=== PATIENT | female | born 1935 | race Caucasian/White ===

== ENCOUNTER 2019-06-06 09:47 | Observation (INO) ==
[2019-06-06] MEDS ORDERED: *HR* HYDROcodone/Acet 5/325 mg TABLET PO ONE (10:18)
[2019-06-06 10:46] LABS: Basophils # 0.1 K/mcL (0.0-0.2); Basophils % 0.6 %; Eosinophils % 0.5 %; Hematocrit 34.7 % (35.3-44.9); Hemoglobin 10.1 g/dL (11.5-15.4); Immature Granulocytes % 0.5 % (0-4); Lymphocytes # 0.7 K/mcL (0.6-4.6); Lymphocytes % 8.8 %; Mean Corpuscular HGB Conc 29.1 g/dL (31.6-35.5); Mean Corpuscular Hemoglobin 27.8 pg (28.0-33.3); Mean Corpuscular Volume 95.6 fL (83.0-100.0); Mean Platelet Volume 11.6 fL (9.4-12.4); Monocytes # 0.6 K/mcL (0.0-1.3); Monocytes % 7.3 %; Neutrophils # 6.9 K/mcL (1.6-8.9); Platelet Count 155 K/mcL (140-400); Red Blood Count 3.63 M/mcL (3.82-4.97); Red Cell Distribution Width 15.8 % (11.5-14.5); Segmented Neutrophils % 82.3 %; White Blood Count 8.3 K/mcL (4.3-11.1)
[2019-06-06 11:05] LABS: BUN/Creatinine Ratio 74 (6-26); Blood Urea Nitrogen 39 mg/dL (8-23); Calcium 9.2 mg/dL (8.6-10.3); Carbon Dioxide 25 mEq/L (23-29); Chloride 111 mEq/L (98-107); Glucose 116 mg/dL (70-105); Osmolality,Calculated 304 (280-300); Potassium 4.6 mEq/L (3.5-5.1); Sodium 142 mEq/L (136-145); eGFR For African Americans > 60 (> 60); eGFR For Non-African Americans > 60 (> 60)
[2019-06-06] MEDS ORDERED: *HR* FentaNYL (PF) 100 MCG/2 ML VIAL IVP ONE (11:42)
[2019-06-06 12:08] LABS: Bilirubin,Urine Negative (Negative); Blood,Urine Negative (Negative); Clarity,Urine Clear (Clear); Color,Urine Yellow (Yellow); Glucose,Urine (UA) Normal (Normal); Ketones,Urine Negative (Negative); Leukocyte Esterase,Urine Negative (Negative); Nitrite,Urine Negative (Negative); PH,Urine 5.5 pH Units (5.0-8.0); Protein,Urine Negative (Neg-Trace); Specific Gravity,Urine 1.027 (1.010-1.025); Urobilinogen,Urine Normal (Normal)
[2019-06-06] MEDS ORDERED: Naloxone 0.4 MG/ML INJ IVP PRN (13:44)
[2019-06-06] MEDS ORDERED: *HR* HYDROmorphone (PF) 1 MG/ML SYRINGE IVP PRN (13:53)
[2019-06-06] MEDS ORDERED: Ondansetron 4 MG/2 ML VIAL IVP PRN (14:18)
[2019-06-06] MEDS ORDERED: MVI IVC SCH (17:00)
[2019-06-06] MEDS ORDERED: [UNRECOGNIZED DRUG - OTHER] IVC SCH (17:00)
[2019-06-06] MEDS ORDERED: PARENTERAL AMINO ACID 10% IVC SCH (17:00)
[2019-06-06] MEDS ORDERED: AMINO ACIDS IVC SCH (17:00)
[2019-06-06] MEDS ORDERED: DEXTROSE 15% IVC SCH (17:00)
[2019-06-06] MEDS ORDERED: Clinimix E 5%-15% SOLUTION 2,000 ML with MVI, adult with vitamin K 10 ML IVC SCH (17:00)
[2019-06-06] MEDS: *HR* Heparin 5,000 UNIT/ML VIAL SQ SCH (17:30)
[2019-06-06] MEDS ORDERED: Melatonin 3 MG TABLET PO SCH (21:00)
[2019-06-06] MEDS ORDERED: QUEtiapine Fumarate 25 MG TABLET PO SCH (21:00)
[2019-06-06] MEDS ORDERED: Latanoprost 2.5 ML BOTTLE RIGHT EYE SCH (21:00)
[2019-06-07] MEDS: *HR* Heparin 5,000 UNIT/ML VIAL SQ SCH (04:34)
[2019-06-07 04:50] LABS: Basophils % 0.6 %; Eosinophils # 0.1 K/mcL (0.0-0.6); Eosinophils % 0.9 %; Hematocrit 29.7 % (35.3-44.9); Hemoglobin 8.9 g/dL (11.5-15.4); Immature Granulocytes % 0.3 % (0-4); Lymphocytes # 1.3 K/mcL (0.6-4.6); Lymphocytes % 18.9 %; Mean Corpuscular Hemoglobin 28.2 pg (28.0-33.3); Mean Platelet Volume 11.6 fL (9.4-12.4); Monocytes # 0.5 K/mcL (0.0-1.3); Monocytes % 7.3 %; Neutrophils # 4.9 K/mcL (1.6-8.9); Platelet Count 126 K/mcL (140-400); Red Blood Count 3.16 M/mcL (3.82-4.97); White Blood Count 6.7 K/mcL (4.3-11.1)
[2019-06-07 05:11] LABS: BUN/Creatinine Ratio 54 (6-26); Blood Urea Nitrogen 29 mg/dL (8-23); Calcium 8.5 mg/dL (8.6-10.3); Carbon Dioxide 27 mEq/L (23-29); Chloride 112 mEq/L (98-107); Glucose 117 mg/dL (70-105); Osmolality,Calculated 303 (280-300); Sodium 143 mEq/L (136-145); eGFR For African Americans > 60 (> 60); eGFR For Non-African Americans > 60 (> 60)
[2019-06-07] MEDS ORDERED: PARoxetine 20 MG TABLET PO SCH (09:00)
[2019-06-07] MEDS ORDERED: Rivastigmine Patch 9.5 MG PATCH.TD24 TD SCH (09:00)
[2019-06-07] MEDS ORDERED: Furosemide 20 MG TABLET PO SCH (09:00)
[2019-06-07 10:05] LABS: Magnesium 1.5 mg/dL (1.6-2.6); Phosphorous 2.7 mg/dL (2.7-4.5)
[2019-06-07 11:15] VITALS: BP 158/79
[2019-06-07] MEDS ORDERED: D10% in Water 500 ML IVC PRN (12:01)
[2019-06-07] MEDS ORDERED: Clinimix E 5%-20% SOLUTION 2,000 ML with MVI, adult with vitamin K 10 ML IVC SCH (17:00)
== END 2019-06-07 18:00 | disposition home health service (06) ==
LOC: 3NENU 09:47 → EMEROOARM 09:47 → SUATTDRO 12:34 → 3NENU 13:16
PROVIDERS: ADMIT Internal Medicine; ATTEND Internal Medicine

== ENCOUNTER 2019-06-20 14:23 | Inpatient (IN) ==
[2019-06-20] MEDS ORDERED: Naloxone 0.4 MG/ML INJ IVP PRN (17:48)
[2019-06-20] MEDS ORDERED: 0.9 % Sodium Chloride 1,000 ML ONE (18:08)
[2019-06-20 18:32] LABS: ABG Base Excess -16 mEq/L (-2 to 3); ABG HCO3 14 mEq/L (21-27); ABG Oxygen Saturation 99 % (95-98); ABG PCO2 50 mmHg (35-45); ABG PH 7.05 pH Units (7.32-7.45); ABG PO2 219 mmHg (85-104); ABG TCO2 15 mEq/L (20-26); Blood Gas Modality ASSIST CONTROL; Blood Gas VT 500 cc
[2019-06-20] MEDS ORDERED: Artificial Tears SOLN 15 ML BOTTLE BOTH EYES PRN (18:43)
[2019-06-20] MEDS: Norepinephrine 4 MG in 0.9 % Sodium Chloride 250 ML IVC SCH ×2 (19:00→21:45)
[2019-06-20] MEDS: Sodium Bicarbonate 150 MEQ in D5% in Water 1,000 ML IVC SCH (19:00)
[2019-06-20] MEDS: D5% in Water 1,000 ML IVC SCH (21:16)
[2019-06-20] MEDS: Artificial Tears SOLN 15 ML BOTTLE BOTH EYES SCH ×2 (21:16→23:30)
[2019-06-20] MEDS: Piperacillin/Tazobactam 3.375 GM in 0.9 % Sodium Chloride Mini Bag 100 ML IVPB SCH (21:16)
[2019-06-20] MEDS: Chlorhexidine Rinse 15 ML MOUTHWASH MM SCH (21:16)
[2019-06-21] MEDS: Norepinephrine 4 MG in 0.9 % Sodium Chloride 250 ML IVC SCH (00:10)
[2019-06-21] MEDS: Piperacillin/Tazobactam 3.375 GM in 0.9 % Sodium Chloride Mini Bag 100 ML IVPB SCH ×4 (00:55→21:23)
[2019-06-21 01:21] LABS: Adenovirus Not Detected (Not Detect); Bordetella Pertussis Not Detected (Not Detect); Chlamydophila pneumoniae Not Detected (Not Detect); Coronavirus 229E Not Detected (Not Detect); Coronavirus HKU1 Not Detected (Not Detect); Coronavirus NL63 Not Detected (Not Detect); Coronavirus OC43 Not Detected (Not Detect); Human Metapneumovirus Not Detected (Not Detect); Human Rhinovirus/Enterovirus Not Detected (Not Detect); Influenza A Subtype 2009 H1 Not Detected (Not Detect); Influenza B Not Detected (Not Detect); Mycoplasma pneumoniae Not Detected (Not Detect); Parainfluenza Virus 1 Not Detected (Not Detect); Parainfluenza Virus 2 Not Detected (Not Detect); Parainfluenza Virus 3 Not Detected (Not Detect); Parainfluenza Virus 4 Not Detected (Not Detect); Respiratory Syncytial Virus Not Detected (Not Detect)
[2019-06-21] MEDS: Artificial Tears SOLN 15 ML BOTTLE BOTH EYES SCH ×6 (03:27→23:06)
[2019-06-21 04:01] LABS: ABG Base Excess -12 mEq/L (-2 to 3); ABG HCO3 16 mEq/L (21-27); ABG Oxygen Saturation 98 % (95-98); ABG PCO2 41 mmHg (35-45); ABG PH 7.19 pH Units (7.32-7.45); ABG PO2 135 mmHg (85-104); ABG TCO2 17 mEq/L (20-26); Blood Gas Modality ASSIST CONTROL; Blood Gas VT 500 cc
[2019-06-21 04:16] LABS: Hemoglobin 9.4 g/dL (11.5-15.4)
[2019-06-21 04:18] LABS: Hematocrit 33.8 % (35.3-44.9); Immature Platelets 7.2 % (1.1-6.1); Mean Corpuscular HGB Conc 27.8 g/dL (31.6-35.5); Mean Corpuscular Hemoglobin 28.8 pg (28.0-33.3); Mean Corpuscular Volume 103.7 fL (83.0-100.0); Mean Platelet Volume 11.7 fL (9.4-12.4); Red Blood Count 3.26 M/mcL (3.82-4.97); Red Cell Distribution Width 18.6 % (11.5-14.5); White Blood Count 17.8 K/mcL (4.3-11.1)
[2019-06-21 04:19] LABS: INR 1.3; Prothrombin Time 14.3 Seconds (9.4-12.1)
[2019-06-21 04:22] LABS: Sodium, Urine 62.4 mEq/L
[2019-06-21 04:50] LABS: Albumin 2.4 g/dL (3.5-5.7); Albumin/Globulin Ratio 0.7 (1.1-2.2); Bilirubin,Direct 0.2 mg/dL (0.0-0.2); Bilirubin,Indirect 0.3 mg/dL (0.0-1.0); Bilirubin,Total 0.5 mg/dL (0.3-1.0); Calcium 7.9 mg/dL (8.6-10.3); Globulin 3.3 g/dL (2.4-3.5); Magnesium 1.7 mg/dL (1.6-2.6); Phosphorous 5.1 mg/dL (2.7-4.5); Potassium 4.2 mEq/L (3.5-5.1); Total Protein 5.7 g/dL (6.4-8.9); Troponin I 0.51 ng/mL (< 0.04)
[2019-06-21] MEDS: Norepinephrine 8 MG in 0.9 % Sodium Chloride 500 ML IVC SCH ×2 (05:45→13:52)
[2019-06-21] MEDS ORDERED: Famotidine 20 MG/2 ML VIAL IVP SCH ×2 (06:00→18:00)
[2019-06-21] MEDS: Sodium Bicarbonate 150 MEQ in D5% in Water 1,000 ML IVC SCH (06:27)
[2019-06-21 06:31] LABS: VBG HCO3 18 mEq/L (21-27); VBG PCO2 45 mmHg (41-51); VBG PH 7.22 pH Units (7.32-7.42); VBG PO2 133 mmHg (25-50)
[2019-06-21] MEDS: D5% in Water 1,000 ML IVC SCH ×3 (07:03→16:26)
[2019-06-21 07:43] LABS: Bilirubin,Urine Small (Negative); Blood,Urine Large (Negative); Clarity,Urine Turbid (Clear); Color,Urine Dark Yellow (Yellow); Glucose,Urine (UA) Normal (Normal); Ketones,Urine Negative (Negative); Leukocyte Esterase,Urine Large (Negative); Nitrite,Urine Negative (Negative); Protein,Urine 100 mg/dL (Neg-Trace); Specific Gravity,Urine 1.021 (1.010-1.025); Urobilinogen,Urine Normal (Normal)
[2019-06-21 07:46] LABS: Bacteria,Urine None Seen per hpf (None-Few); Squamous Epithelial Cell,Urine Many per lpf (None-Few)
[2019-06-21 08:06] LABS: RBC,Urine 30-50 per hpf (0-3)
[2019-06-21 08:07] LABS: WBC,Urine 30-50 per hpf (0-3)
[2019-06-21 08:08] LABS: Hyaline Casts,Urine Few per lpf (None-Few)
[2019-06-21] MEDS: Chlorhexidine Rinse 15 ML MOUTHWASH MM SCH ×2 (09:11→21:24)
[2019-06-21] MEDS ORDERED: D10% in Water 500 ML IVC PRN (11:19)
[2019-06-21] MEDS ORDERED: *HR* Dextrose 50 % in Water (Syg) 50 ML SYRINGE IVP PRN (11:37)
[2019-06-21] MEDS ORDERED: D5% in Water 1,000 ML IVC PRN (11:37)
[2019-06-21] MEDS ORDERED: Dextrose Gel 15 GM/37.5 ML TUBE PO PRN ×2 (11:37)
[2019-06-21] MEDS: FentaNYL (PF) 1,000 MCG in 0.9 % Sodium Chloride 80 ML IVC SCH ×2 (12:17→20:50)
[2019-06-21] MEDS: Dexmedetomidine HCl 400 MCG/100 ML MLS IVC SCH ×2 (12:17→18:04)
[2019-06-21] MEDS: Insulin LISPRO 300 UNITS/3 ML VIAL SQ SCH ×3 (12:54→21:39)
[2019-06-21] MEDS ORDERED: *HR* Metoprolol 5 MG/5 ML VIAL IVP PRN (12:54)
[2019-06-21] MEDS ORDERED: Phenylephrine 10 MG in 0.9 % Sodium Chloride 250 ML IVC SCH (13:00)
[2019-06-21] MEDS ORDERED: *HR* Adenosine 6 MG/2 ML VIAL IVP ONE ×2 (13:01→13:03)
[2019-06-21] MEDS ORDERED: DilTIAZem 50 MG in 0.9 % Sodium Chloride 40 ML IVC SCH (13:15)
[2019-06-21 14:08] LABS: VBG Ionized Calcium 1.21 mmol/L (1.15-1.35)
[2019-06-21 14:27] LABS: Albumin 2.2 g/dL (3.5-5.7); Albumin/Globulin Ratio 0.7 (1.1-2.2); Bilirubin,Total 0.5 mg/dL (0.3-1.0); Calcium 7.9 mg/dL (8.6-10.3); Globulin 3.1 g/dL (2.4-3.5); Magnesium 1.6 mg/dL (1.6-2.6); Phosphorous 5.1 mg/dL (2.7-4.5); Potassium 3.6 mEq/L (3.5-5.1); Total Protein 5.3 g/dL (6.4-8.9)
[2019-06-21] MEDS: DilTIAZem 50 MG in 0.9 % Sodium Chloride 40 ML IVC SCH ×3 (14:46→21:21)
[2019-06-21] MEDS ORDERED: Potassium Chloride 40 MEQ, Lidocaine 1% 2 ML in 0.9 % Sodium Chloride 500 ML IVPB ONE (15:20)
[2019-06-21] MEDS ORDERED: Vancomycin 500 MG in 0.9 % Sodium Chloride Mini Bag 100 ML IVPB ONE (15:21)
[2019-06-21 15:25] LABS: ABG Base Excess -7 mEq/L (-2 to 3); ABG HCO3 18 mEq/L (21-27); ABG Oxygen Saturation 100 % (95-98); ABG PCO2 34 mmHg (35-45); ABG PH 7.34 pH Units (7.32-7.45); ABG PO2 212 mmHg (85-104); ABG TCO2 20 mEq/L (20-26); Blood Gas Modality ASSIST CONTROL; Blood Gas VT 450 cc
[2019-06-21] MEDS: Phenylephrine 50 MG in 0.9 % Sodium Chloride 250 ML IVC SCH ×2 (15:25→21:28)
[2019-06-21] MEDS ORDERED: Clinimix 5%-20% SOLUTION 2,000 ML with MVI, adult with vitamin K 10 ML, Sodium Chlori... IVC SCH (17:00)
[2019-06-22] MEDS: Insulin LISPRO 300 UNITS/3 ML VIAL SQ SCH ×7 (00:12→23:52)
[2019-06-22] MEDS ORDERED: *HR* Atropine Sulfate 1 MG/10 ML SYRINGE ONE (01:24)
[2019-06-22] MEDS: Artificial Tears SOLN 15 ML BOTTLE BOTH EYES SCH ×5 (03:10→20:04)
[2019-06-22] MEDS: Phenylephrine 50 MG in 0.9 % Sodium Chloride 250 ML IVC SCH ×4 (03:13→23:59)
[2019-06-22] MEDS: D5% in Water 1,000 ML IVC SCH ×3 (03:20→17:41)
[2019-06-22 04:12] LABS: ABG Base Excess -8 mEq/L (-2 to 3); ABG HCO3 18 mEq/L (21-27); ABG Oxygen Saturation 70 % (95-98); ABG PCO2 41 mmHg (35-45); ABG PH 7.26 pH Units (7.32-7.45); ABG PO2 42 mmHg (85-104); ABG TCO2 20 mEq/L (20-26); Blood Gas Modality AF; Blood Gas VT 450 cc
[2019-06-22 04:18] LABS: ABG Base Excess -7 mEq/L (-2 to 3); ABG HCO3 18 mEq/L (21-27); ABG Oxygen Saturation 95 % (95-98); ABG PCO2 35 mmHg (35-45); ABG PH 7.32 pH Units (7.32-7.45); ABG PO2 79 mmHg (85-104); ABG TCO2 19 mEq/L (20-26); Blood Gas Modality AF; Blood Gas VT 450 cc
[2019-06-22 04:42] LABS: Albumin 2.2 g/dL (3.5-5.7); Albumin/Globulin Ratio 0.7 (1.1-2.2); Bilirubin,Total 0.6 mg/dL (0.3-1.0); Calcium 8.6 mg/dL (8.6-10.3); Globulin 3.2 g/dL (2.4-3.5); Potassium 3.4 mEq/L (3.5-5.1); Total Protein 5.4 g/dL (6.4-8.9)
[2019-06-22 04:44] LABS: Calcium 8.4 mg/dL (8.6-10.3); Phosphorous 4.1 mg/dL (2.7-4.5); Potassium 3.4 mEq/L (3.5-5.1)
[2019-06-22] MEDS: Piperacillin/Tazobactam 3.375 GM in 0.9 % Sodium Chloride Mini Bag 100 ML IVPB SCH ×3 (06:00→20:04)
[2019-06-22] MEDS: FentaNYL (PF) 1,000 MCG in 0.9 % Sodium Chloride 80 ML IVC SCH ×3 (06:29→22:46)
[2019-06-22] MEDS: DilTIAZem 50 MG in 0.9 % Sodium Chloride 40 ML IVC SCH ×4 (06:29→22:51)
[2019-06-22] MEDS: *HR* Enoxaparin 30 MG/0.3 ML SYRINGE SQ SCH (06:34)
[2019-06-22] MEDS: Famotidine 20 MG/2 ML VIAL IVP SCH (06:35)
[2019-06-22] MEDS: Chlorhexidine Rinse 15 ML MOUTHWASH MM SCH ×2 (07:50→20:04)
[2019-06-22] MEDS ORDERED: levoFLOXacin 750 MG/150 ML 750 MG/150 ML BAG IVPB SCH (09:00)
[2019-06-22 10:26] LABS: ABG Base Excess -6 mEq/L (-2 to 3); ABG HCO3 19 mEq/L (21-27); ABG Oxygen Saturation 78 % (95-98); ABG PCO2 37 mmHg (35-45); ABG PH 7.32 pH Units (7.32-7.45); ABG PO2 46 mmHg (85-104); ABG TCO2 20 mEq/L (20-26); Blood Gas Modality ASSIST CONTROL; Blood Gas VT 450 cc
[2019-06-22 10:52] LABS: Mean Corpuscular HGB Conc 29.5 g/dL (31.6-35.5)
[2019-06-22 10:54] LABS: Hematocrit 27.5 % (35.3-44.9); Hemoglobin 8.1 g/dL (11.5-15.4); Immature Platelets 7.8 % (1.1-6.1); Mean Corpuscular Hemoglobin 28.2 pg (28.0-33.3); Mean Corpuscular Volume 95.8 fL (83.0-100.0); Mean Platelet Volume 11.9 fL (9.4-12.4); Red Blood Count 2.87 M/mcL (3.82-4.97); Red Cell Distribution Width 18.5 % (11.5-14.5); White Blood Count 15.1 K/mcL (4.3-11.1)
[2019-06-22] MEDS ORDERED: Lidocaine -MPF 1% 5 ML AMPUL INFILT ONE (11:38)
[2019-06-22 13:05] LABS: VBG Ionized Calcium 1.25 mmol/L (1.15-1.35)
[2019-06-22 14:28] LABS: Albumin/Globulin Ratio 0.6 (1.1-2.2); Bilirubin,Total 0.6 mg/dL (0.3-1.0); Calcium 7.8 mg/dL (8.6-10.3); Globulin 3.1 g/dL (2.4-3.5); Magnesium 1.7 mg/dL (1.6-2.6); Phosphorous 3.6 mg/dL (2.7-4.5); Potassium 3.3 mEq/L (3.5-5.1); Total Protein 5.1 g/dL (6.4-8.9)
[2019-06-22] MEDS: Dexmedetomidine HCl 400 MCG/100 ML MLS IVC SCH (14:29)
[2019-06-22] MEDS ORDERED: Clinimix E 5%-15% SOLUTION 2,000 ML with MVI, adult with vitamin K 10 ML IVC SCH (17:00)
[2019-06-22] MEDS: Potassium Chloride 40 MEQ/200 ML BAG IVPB PRN ×2 (18:40→20:05)
[2019-06-22 22:47] LABS: Calcium 7.8 mg/dL (8.6-10.3); Potassium 3.4 mEq/L (3.5-5.1)
[2019-06-23] MEDS: Artificial Tears SOLN 15 ML BOTTLE BOTH EYES SCH ×6 (00:02→21:03)
[2019-06-23 01:05] LABS: Potassium 3.1 mEq/L (3.5-5.1)
[2019-06-23] MEDS: Dexmedetomidine HCl 400 MCG/100 ML MLS IVC SCH ×4 (01:22→20:51)
[2019-06-23] MEDS: Potassium Chloride 40 MEQ/200 ML BAG IVPB PRN ×5 (02:12→18:02)
[2019-06-23 03:20] LABS: Eosinophils % 0.9 %
[2019-06-23 03:21] LABS: Basophils % 0.2 %; Eosinophils # 0.1 K/mcL (0.0-0.6); Hematocrit 26.9 % (35.3-44.9); Lymphocytes # 1.3 K/mcL (0.6-4.6); Lymphocytes % 8.1 %; Mean Corpuscular HGB Conc 29.7 g/dL (31.6-35.5); Mean Corpuscular Hemoglobin 28.3 pg (28.0-33.3); Mean Corpuscular Volume 95.1 fL (83.0-100.0); Monocytes # 0.4 K/mcL (0.0-1.3); Monocytes % 2.7 %; Nucleated Red Blood Cells 0.6 /100 WBC (0); Red Blood Count 2.83 M/mcL (3.82-4.97); Red Cell Distribution Width 18.4 % (11.5-14.5); Segmented Neutrophils % 86.1 %; White Blood Count 15.5 K/mcL (4.3-11.1)
[2019-06-23 03:23] LABS: VBG Ionized Calcium 1.29 mmol/L (1.15-1.35)
[2019-06-23 03:39] LABS: Calcium 7.8 mg/dL (8.6-10.3); Potassium 3.5 mEq/L (3.5-5.1)
[2019-06-23 03:40] LABS: Neutrophils # 13.4 K/mcL (1.6-8.9); Platelet Count 51 K/mcL (140-400)
[2019-06-23 03:41] LABS: Anisocytosis 1+ (Not Present); Platelet Estimate Decreased (Normal)
[2019-06-23] MEDS: Insulin LISPRO 300 UNITS/3 ML VIAL SQ SCH ×5 (03:50→21:03)
[2019-06-23 04:29] LABS: INR 1.1; Prothrombin Time 12.4 Seconds (9.4-12.1)
[2019-06-23 04:34] LABS: ABG Base Excess -6 mEq/L (-2 to 3); ABG HCO3 19 mEq/L (21-27); ABG Oxygen Saturation 97 % (95-98); ABG PCO2 35 mmHg (35-45); ABG PH 7.35 pH Units (7.32-7.45); ABG PO2 97 mmHg (85-104); ABG TCO2 20 mEq/L (20-26); Blood Gas Modality AF; Blood Gas VT 400 cc
[2019-06-23] MEDS: D5% in Water 1,000 ML IVC SCH (04:42)
[2019-06-23] MEDS: Piperacillin/Tazobactam 3.375 GM in 0.9 % Sodium Chloride Mini Bag 100 ML IVPB SCH (04:43)
[2019-06-23] MEDS: FentaNYL (PF) 1,000 MCG in 0.9 % Sodium Chloride 80 ML IVC SCH ×3 (05:57→20:50)
[2019-06-23] MEDS: *HR* Enoxaparin 30 MG/0.3 ML SYRINGE SQ SCH (06:16)
[2019-06-23] MEDS: Famotidine 20 MG/2 ML VIAL IVP SCH (06:16)
[2019-06-23] MEDS: Chlorhexidine Rinse 15 ML MOUTHWASH MM SCH ×2 (07:51→21:03)
[2019-06-23] MEDS: Phenylephrine 50 MG in 0.9 % Sodium Chloride 250 ML IVC SCH (08:00)
[2019-06-23] MEDS: Norepinephrine 8 MG in 0.9 % Sodium Chloride 500 ML IVC SCH (08:18)
[2019-06-23] MEDS: Argatroban 250 MG in 0.9 % Sodium Chloride 250 ML IVC SCH (09:25)
[2019-06-23] MEDS ORDERED: D10% in Water 500 ML IVC PRN (10:37)
[2019-06-23] MEDS ORDERED: Perflutren Lipid Microsphere 1.3 ML in 0.9 % Sodium Chloride 8.7 ML IVP ONE (10:51)
[2019-06-23] MEDS ORDERED: Albumin 25% 25gram/100mL 25 GM/100 ML IV.SOLN IVPB ONE (11:03)
[2019-06-23] MEDS: Lacri-Lube 3.5 GM TUBE OP SCH ×2 (11:11→21:04)
[2019-06-23] MEDS: Cefepime HCl 1,000 MG in Water for inj. (sterile) 10 ML IVP SCH ×2 (11:18→21:01)
[2019-06-23] MEDS ORDERED: Clinimix E 5%-15% SOLUTION 2,000 ML with MVI, adult with vitamin K 10 ML IVC SCH (17:00)
[2019-06-23 21:23] LABS: Basophils % 0.2 %; Mean Platelet Volume 10.4 fL (9.4-12.4); Nucleated Red Blood Cells 0.3 /100 WBC (0); Red Cell Distribution Width 18.6 % (11.5-14.5)
[2019-06-23 21:25] LABS: Eosinophils # 0.1 K/mcL (0.0-0.6); Eosinophils % 1.1 %; Hematocrit 24.3 % (35.3-44.9); Hemoglobin 7.1 g/dL (11.5-15.4); Immature Granulocytes % 0.9 % (0-4); Immature Platelets 6.3 % (1.1-6.1); Lymphocytes # 0.7 K/mcL (0.6-4.6); Mean Corpuscular HGB Conc 29.2 g/dL (31.6-35.5); Mean Corpuscular Hemoglobin 28.1 pg (28.0-33.3); Monocytes # 0.4 K/mcL (0.0-1.3); Monocytes % 3.2 %; Neutrophils # 10.4 K/mcL (1.6-8.9); Red Blood Count 2.53 M/mcL (3.82-4.97); Segmented Neutrophils % 88.6 %; White Blood Count 11.7 K/mcL (4.3-11.1)
[2019-06-23 21:26] LABS: Platelet Count 36 K/mcL (140-400)
[2019-06-23 22:03] LABS: Anisocytosis 1+ (Not Present); Platelet Estimate Decreased (Normal)
[2019-06-24] MEDS: Insulin LISPRO 300 UNITS/3 ML VIAL SQ SCH ×4 (00:08→12:05)
[2019-06-24 02:56] LABS: Hemoglobin 7.3 g/dL (11.5-15.4); Mean Corpuscular Volume 96.9 fL (83.0-100.0)
[2019-06-24 02:58] LABS: Basophils % 0.1 %; Eosinophils # 0.2 K/mcL (0.0-0.6); Eosinophils % 1.5 %; Hematocrit 24.9 % (35.3-44.9); Immature Granulocytes % 1.1 % (0-4); Immature Platelets 7.3 % (1.1-6.1); Lymphocytes # 0.6 K/mcL (0.6-4.6); Lymphocytes % 5.8 %; Mean Corpuscular HGB Conc 29.3 g/dL (31.6-35.5); Mean Corpuscular Hemoglobin 28.4 pg (28.0-33.3); Mean Platelet Volume 10.7 fL (9.4-12.4); Monocytes # 0.3 K/mcL (0.0-1.3); Monocytes % 2.8 %; Neutrophils # 9.8 K/mcL (1.6-8.9); Nucleated Red Blood Cells 0.3 /100 WBC (0); Red Blood Count 2.57 M/mcL (3.82-4.97); Red Cell Distribution Width 18.6 % (11.5-14.5); Segmented Neutrophils % 88.7 %
[2019-06-24 02:59] LABS: Platelet Count 34 K/mcL (140-400)
[2019-06-24] MEDS: Artificial Tears SOLN 15 ML BOTTLE BOTH EYES SCH ×4 (03:09→12:27)
[2019-06-24] MEDS: Norepinephrine 8 MG in 0.9 % Sodium Chloride 500 ML IVC SCH (03:12)
[2019-06-24 03:17] LABS: BUN/Creatinine Ratio 34 (6-26); Blood Urea Nitrogen 33 mg/dL (8-23); Calcium 8.7 mg/dL (8.6-10.3); Carbon Dioxide 19 mEq/L (23-29); Chloride 122 mEq/L (98-107); Glucose 113 mg/dL (70-105); Magnesium 1.9 mg/dL (1.6-2.6); Osmolality,Calculated 312 (280-300); Phosphorous 2.7 mg/dL (2.7-4.5); Sodium 147 mEq/L (136-145); eGFR For African Americans > 60 (> 60); eGFR For Non-African Americans 55 (> 60)
[2019-06-24] MEDS: D5% in Water 1,000 ML IVC SCH (03:25)
[2019-06-24] MEDS: Cefepime HCl 1,000 MG in Water for inj. (sterile) 10 ML IVP SCH ×2 (03:26→11:40)
[2019-06-24] MEDS: FentaNYL (PF) 1,000 MCG in 0.9 % Sodium Chloride 80 ML IVC SCH ×3 (04:22→18:06)
[2019-06-24 04:42] LABS: ABG Base Excess -5 mEq/L (-2 to 3); ABG HCO3 21 mEq/L (21-27); ABG Oxygen Saturation 96 % (95-98); ABG PCO2 41 mmHg (35-45); ABG PH 7.31 pH Units (7.32-7.45); ABG PO2 90 mmHg (85-104); ABG TCO2 22 mEq/L (20-26); Blood Gas Modality VC; Blood Gas VT 400 cc
[2019-06-24 06:17] LABS: Acinetobacter baumannii by PCR Not Detected (Not Detect); Candida albicans by PCR Not Detected (Not Detect); Candida glabrata by PCR Not Detected (Not Detect); Candida krusei by PCR Not Detected (Not Detect); Candida parapsilosis by PCR Not Detected (Not Detect); Candida tropicalis by PCR Not Detected (Not Detect); Enterobacter cloacae Cmplx PCR Not Detected (Not Detect); Enterobacteriaceae by PCR Not Detected (Not Detect); Enterococcus by PCR Not Detected (Not Detect); Escherichia coli by PCR Not Detected (Not Detect); Klebsiella oxytoca by PCR Not Detected (Not Detect); Klebsiella pneumoniae by PCR Not Detected (Not Detect); Proteus by PCR Not Detected (Not Detect); Pseudomonas aeruginosa by PCR Not Detected (Not Detect); Serratia marcescens by PCR Not Detected (Not Detect); Staphylococcus aureus by PCR Not Detected (Not Detect); Staphylococcus by PCR Not Detected (Not Detect); Streptococcus agalactiae(B)PCR Not Detected (Not Detect); Streptococcus by PCR Not Detected (Not Detect); Streptococcus pneumoniae PCR Not Detected (Not Detect); Streptococcus pyogenes (A) PCR Not Detected (Not Detect)
[2019-06-24] MEDS: Famotidine 20 MG/2 ML VIAL IVP SCH (06:24)
[2019-06-24] MEDS ORDERED: Albumin 25% 25gram/100mL 25 GM/100 ML IV.SOLN IVPB ONE (07:47)
[2019-06-24] MEDS: Chlorhexidine Rinse 15 ML MOUTHWASH MM SCH (08:22)
[2019-06-24] MEDS: Lacri-Lube 3.5 GM TUBE OP SCH (08:23)
[2019-06-24] MEDS: Dexmedetomidine HCl 400 MCG/100 ML MLS IVC SCH (09:03)
[2019-06-24] MEDS ORDERED: Vancomycin 500 MG in 0.9 % Sodium Chloride Mini Bag 100 ML IVPB ONE (11:00)
[2019-06-24] MEDS ORDERED: D10% in Water 500 ML IVC PRN (11:28)
[2019-06-24] MEDS: Argatroban 250 MG in 0.9 % Sodium Chloride 250 ML IVC SCH (12:05)
[2019-06-24] MEDS ORDERED: Potassium Phosphate 44 MEQ in 0.9 % Sodium Chloride 250 ML IVPB PRN (12:22)
[2019-06-24] MEDS ORDERED: *HR* LORazepam 2 MG/ML VIAL IVP ONE (13:42)
[2019-06-24] MEDS ORDERED: Atropine Sulfate 1% 40 DROP/2 ML BOTTLE SL PRN (13:45)
[2019-06-24] MEDS ORDERED: *HR* FentaNYL (PF) 100 MCG/2 ML VIAL IVP ONE (13:45)
[2019-06-24] MEDS ORDERED: Haloperidol Lactate 5 MG/ML VIAL IVP PRN ×2 (13:46→17:14)
[2019-06-24] MEDS ORDERED: *HR* FentaNYL (PF) 100 MCG/2 ML VIAL IVP PRN (13:46)
[2019-06-24] MEDS ORDERED: *HR* LORazepam 2 MG/ML VIAL IVP PRN ×2 (13:47→17:14)
[2019-06-24] MEDS ORDERED: Glycopyrrolate 0.2 MG/ML VIAL IVP ONE (13:50)
[2019-06-24] MEDS ORDERED: Aminoglycoside Consult 1 EACH MC ONE (14:46)
[2019-06-24] MEDS ORDERED: Clinimix E 5%-15% SOLUTION 2,000 ML with MVI, adult with vitamin K 10 ML IVC SCH (17:00)
[2019-06-24] MEDS: *HR* FentaNYL (PF) 100 MCG/2 ML VIAL IVP PRN (18:05)
[2019-06-24] MEDS ORDERED: Scopolamine Patch 1.5 MG PATCH.TD72 TD SCH (18:15)
[2019-06-24] MEDS: Atropine Sulfate 1% 40 DROP/2 ML BOTTLE SL PRN ×2 (18:25→23:18)
[2019-06-25] MEDS: Atropine Sulfate 1% 40 DROP/2 ML BOTTLE SL PRN ×5 (01:57→13:41)
[2019-06-25] MEDS: FentaNYL (PF) 1,000 MCG in 0.9 % Sodium Chloride 80 ML IVC SCH ×2 (04:58→13:39)
[2019-06-25] MEDS: *HR* FentaNYL (PF) 100 MCG/2 ML VIAL IVP PRN (08:19)
[2019-06-25] MEDS ORDERED: Acetaminophen 650 MG RECTAL SUPP RC PRN (10:21)
[2019-06-25 13:04] VITALS: BP 90/52
== END 2019-06-25 14:47 | disposition expired | DRG 871 ==
LOC: SUATTDRO 17:04 → 2NNU 17:04 → MERGE 17:04 → ICNU 06-22 09:32 → 2ANU 06-24 17:54
PROVIDERS: ADMIT Internal Medicine; ATTEND Family Medicine